=== PATIENT | male | born 1965 | race Caucasian/White ===

== ENCOUNTER → 2024-04-21 | Day surgery (SDC) | payer BC ==
[~2024-04-21] MED LIST: FENTANYL CITRATE/PF 100MCG/2 ML INJ ONE; HYOSCYAMINE SULFATE 0.5 MG/ML INJ ONE; INDERAL LA60 MG PO; LIDOCAINE HCL 2% LOCAL INJ 5 ML SDV VIAL INJ ONE; MIDAZOLAM HCL 2 MG/2 ML VIAL ONE; NEXIUM20 MG PO; PROPOFOL IV EMULSION 50 ML IV ONE
[2024-04-21] MEDS: LACTATED RINGER'S 1,000 ML ONE (06:13)
[2024-04-21] MEDS: METOCLOPRAMIDE HCL 10 MG/2ML VIAL ONE (06:13)
[2024-04-21 08:24] VITALS: TEMP 97.4
[2024-04-21 08:40] VITALS: BP 110/82; PULSE 71; RESP 16; O2SAT 96
== END | disposition home or self-care (01) ==
LOC: OR 05:29
PROVIDERS: ATTEND Internal Medicine Gastroenterology
DX: Z09 Encounter for follow-up examination after completed treatment for conditions other than malignant neoplasm (principal); D12.4 Benign neoplasm of descending colon; D12.3 Benign neoplasm of transverse colon; K62.1 Rectal polyp; K64.8 Other hemorrhoids; I10 Essential (primary) hypertension; Z79.899 Other long term (current) drug therapy
CPT/HCPCS: 45385; 93005; J1980; J2003; J2250; J2704; J2765; J3010; J7121; 45378